=== PATIENT | male | born 1985 | race Caucasian/White ===

== ENCOUNTER 2017-03-11 21:02 | Emergency (ER) | payer OTHER ==
[~2017-03-11] VITALS: Ht 172.7 cm; Wt 59.1 kg
[2017-03-11 21:03] VITALS: BP 144/99; PULSE 78; RESP 16; O2SAT 98
--- NOTE | 2017-03-11 21:52 | ED.REPORT ---
HPI-General Illness Date of Service Mar 11, 2017 ED Provider: Shaquille Sheehan MD A 31 year old male with a previous history of polysubstance abuse (in recovery) who presents to the ED with throbbing, 10/10 dental pain that began 3 days ago. His pain has been persistent since onset and is exacerbated by cold. The patient is currently expressing concern that a dental abscess has formed. He does not have a regular dentist currently. The patient denies any fever, chills , headache, neck stiffness, nausea, vomiting, visual disturbances, earache, rash , abdominal pain, chest pain, shortness of breath, recent cough, diarrhea, constipation, dysuria, lightheadedness, or numbness/tingling. Nursing Notes Stated Complaint: MOUTH PAIN Chief Complaint: General Complaint Nursing Notes Reviewed: Yes Allergies: Coded Allergies: No Known Allergies (Unverified , 03/11/17) General Time Seen by MD: 21:46 Chief Complaint Other (Dental Pain) Hx Obtained From: Patient Arrived By: Walk-in Sudden in Onset?: No Onset Occurred: 3 days ago Symptom Duration: Since onset Location: : Mouth Quality: Painful Radiation: : Does not radiate Severity: Current: Moderate Severity: Maximum: Moderate Pertinent Negative: Pt denies other symptoms Recent Healthcare: No recent doctor visit, No recent hospitalization Past Medical History Past Medical History Polysubstance abuse Previous dental trauma Past Surgical History None reported. Smoking History Current Every Day Smoker Social History Currently lives at the [facility] Alcohol Use: In recovery Drug Use: In recovery, IV drugs Other Social History: Lives in rehab facility, Local resident Ambulatory Status Independent Review of Systems Full Review of Systems Constitutional: Denies: Chills, Fever Ears / Nose / Throat: Reports: Mouth pain (Dental pain) Respiratory: Denies: Shortness of breath Cardiovascular: Denies: Chest pain GI: Denies: Abdominal pain, Constipation, Diarrhea, Nausea, Vomiting Complete sys rev & neg: except as marked. Physical Exam Nursing note and vitals reviewed. Constitutional: Well-developed, well-nourished. Not diaphoretic. Head: Normocephalic and atraumatic. No mastoid tenderness. No trismus. No TMJ tenderness. Mouth/Throat: Oropharynx is clear and moist. No oropharyngeal exudate. Dental: Left back upper molar with tenderness to percussion. No signs of abscess. Gums are inflamed. Eyes: EOM are normal. Pupils are equal, round, and reactive to light. Neck: Supple, no tracheal deviation. Cardiovascular: Normal rate, regular rhythm. Equal and intact distal pulses throughout. Pulmonary/Chest: Effort normal and breath sounds normal. No respiratory distress. Abdominal: Soft. No distension. Musculoskeletal: Range of motion grossly intact, moving all extremities. Neurological: AOx3. Grossly nonfocal exam. Strength and sensation intact and equal to bilateral upper and lower extremities. Skin: Warm and dry, no rashes or pallor appreciated. Psychiatric: Appropriate mood and affect. Behavior appears normal. Vital Signs Vital Signs Date Time Temp Pulse Resp B/P Pulse Ox O2 Delivery O2 Flow Rate FiO2 03/11/17 23:37 36.6 72 18 124/60 98 Room Air 03/11/17 22:58 72 18 124/60 98 Room Air 03/11/17 21:03 36.6 78 16 144/99 98 Room Air Initial VS: Reviewed Re-Eval/Medical Decision Med Decision/Clinical Course 31-year-old male presenting to the ED for evaluation of dental pain over the past several days. Afebrile, nontoxic appearing. No signs of periapical abscess on examination. He does have significant gingival swelling as well as tenderness to percussion and sensitivity to cold. He does not have any systemic symptoms at this time, nor examination findings to suggest spread beyond the area in question at this time. Patient given a dose of Toradol IM here in the emergency department with some relief of symptoms. Plan discharge home with a prescription for antibiotics, dental follow-up in the next several days. Patient agreeable to the plan as stated, no further questions. Careful return precautions were discussed at length. Time of Eval: 23:02 Patient Status: Condition improved, Pain improved Re-Evaluation/Progress Note: Upon recheck, the patient's symptoms have improved. He is informed of his results and the intended treatment plan. All questions are addressed at this time and he is agreeable to the current plan. Counseled Regarding: Diagnosis, Need for follow-up, When/why to return to ED Discharge & Departure Primary Impression: Dental caries Additional Impression: Pain, dental Disposition: Home Discharge Condition All VS Reviewed: Yes Condition: Improved Patient Instructions: Dental Caries (ED) Additional Instructions: Thank you for trusting us with your care this evening. Your emergency department evaluation today is reassuring that there is no emergent cause for concern at this time and I believe that your pain is due to a dental caries. Schedule a follow up appointment with your primary care physician and the referred dentist in the next 1-2 days for a recheck. Take the full course of Augmentin as directed. Take 600 mg of ibuprofen every 6 hours as needed for pain. Please return to the emergency department for any new or worsening symptoms including any worsening pain, fever, chills, or any other symptoms of concern to you. Referrals: [facility] ([facility] Scribe Attestation Portions of this note were transcribed by Gretchen Coughlin. I, Dr. Sheehan personally performed the history, physical exam and medical decision-making; I reviewed and confirmed the accuracy of the information in the transcribed note. Signed by Shawna Gutpa, 03/11/17. Shaquille Sheehan MD Mar 11, 2017 21:52 GRETCHEN COUGHLIN Mar 11, 2017 22:10
[2017-03-11 22:58] VITALS: BP 124/60; PULSE 72; RESP 18; O2SAT 98
[2017-03-11] MEDS ORDERED: _Amoxicillin-Clavulanate 875-125 mg Tablet PO SCH (23:10)
[2017-03-11 23:37] VITALS: BP 124/60; PULSE 72; RESP 18; O2SAT 98
== END 2017-03-11 23:38 | disposition home or self-care (01) ==
LOC: SED 21:02
DX: K02.9 Dental caries, unspecified (principal); K08.89 Other specified disorders of teeth and supporting structures; F19.10 Other psychoactive substance abuse, uncomplicated; F17.200 Nicotine dependence, unspecified, uncomplicated; Z87.828 Personal history of other (healed) physical injury and trauma
CPT/HCPCS: 96372; 99283; J1885